=== PATIENT | female | born 1955 | race Caucasian/White ===

== ENCOUNTER 2022-05-08 13:04 | Emergency (ER) | payer MEDICARE ==
[2022-05-08 13:14] VITALS: BP 144/94; PULSE 54; RESP 18; TEMP 98.8; BMI 22.8
[2022-05-08] MEDS ORDERED: AMOX TR/POT CLAV 875MG/125MG TABLETS (FP) PO ONE (13:22)
[2022-05-08] MEDS ORDERED: AMOX TR/POT CLAV 875MG/125MG TABLETS (FP) ONE (13:27)
== END 2022-05-08 13:44 | disposition home or self-care (01) ==
LOC: FER 13:04
DX: H00.012 Hordeolum externum right lower eyelid (principal)
CPT/HCPCS: 99283-25

== ENCOUNTER 2023-12-16 12:34 | Emergency (ER) | payer OTHER ==
[2023-12-16 13:05] VITALS: BP 138/86; PULSE 61; RESP 18; TEMP 98; BMI 23.0
== END 2023-12-16 13:33 | disposition home or self-care (01) ==
LOC: FER 12:34
DX: S90.852A Superficial foreign body, left foot, initial encounter (principal); M25.775 Osteophyte, left foot; W45.8XXA Other foreign body or object entering through skin, initial encounter
CPT/HCPCS: 73630-TC-LT; 99284-25